=== PATIENT | female | born 1985 | race Caucasian/White ===

== ENCOUNTER → 2020-06-08 12:09 | Outpatient (CLI) | payer BC, SELFPAY ==
--- NOTE | 2020-06-08 | DI.US.S_ITS ---
PROCEDURE: US OB <= 14 WEEKS FETUS INDICATIONS: CONFLICTING LAB RESULTS OUTSIDE/PRIOR DATING DATA: Last menstrual period (LMP): 04/12/2020. LMP-based estimated date of delivery (CHEVY): 01/17/2021. First dating scan (date and location): 06/08/2020. Estimated date of delivery (CHEVY) from first dating scan: 01/23/2021. TECHNIQUE: Real-time scanning was performed of the fetus and maternal pelvic organs, with image documentation. Endovaginal scanning was also performed to better visualize the fetus and maternal ovaries. COMPARISON: None. FINDINGS: Embryo: A single live intrauterine with a yolk sac is identified. heart rate measures 153 beats per minute. 2 areas of crescentic hypoechoic areas are identified, on the right measuring 2.8 x 0.7 x 1.3 centimeters and on the left measuring 2.3 x 1.4 x 1.1 centimeters. Measurement variability in dating: +/- 4 weeks by LMP, +/- 7 days by mean sac diameter (use before 6 weeks gestation if crown-rump length not able to be measured), +/- 5 days by crown-rump length (up to 8 weeks 6 days gestation), +/- 7 days by crown-rump length (up to 13 weeks 6 days gestation). Maternal organs: Both maternal ovaries are normal.. IMPRESSION: 1. Single live intrauterine with a yolk sac with a gestational age by crown rump length of 7 weeks 2 days. heart rate is 153 beats per minute. 2. 2 crescentic hypodense foci are seen suspicious for small subchorionic hemorrhages. Dictated by: Nirmal Badillo M.D. on 06/08/2020 at 13:55 Approved by: Nirmal Badillo M.D. on 06/08/2020 at 14:00
== END ==
PROVIDERS: PCP Naturopath; Referring Provider Midwife; Visit Provider Midwife
DX: Z34.91 Encounter for supervision of normal pregnancy, unspecified, first trimester (principal); Z3A.01 Less than 8 weeks gestation of pregnancy
CPT/HCPCS: 76801; 76817